=== PATIENT | male | born 1975 | race Caucasian/White ===

== ENCOUNTER 2017-03-27 21:18 | Emergency (ER) | payer MEDICARE, OTHER ==
[~2017-03-27] VITALS: Ht 188 cm; Wt 122.5 kg
[~2017-03-27 21:18] MED LIST: ALLEGRA180 MG PO; ANAPROX DS550 MG PO; AZITHROMYCIN250 MG PO; BACLOFEN10 MG PO; CARAFATE1 GM PO; CHANTIX1 EACH PO; CLINDAMYCIN HC150 MG PO; CLINDAMYCIN HC300 MG PO; CRIXIVAN PO; GUAIATUSSIN AC10 ML PO; MONTELUKAST SOD10 MG PO; NORCO 5-325 TA1 EACH PO; NORVIR100 M1 PO; NORVIR100 MG PO; OMEPRAZOLE20 MG PO; PERCOCET 10-321 EACH PO; PERCOCET 5-3251 EACH PO; PREZISTA PO; PREZISTA600 MG PO; SEPTRA DS TABL1 EACH PO; TESSALON PERLE100 MG PO; TRUVADA 200 MG1 EACH PO; VENTOLIN HFA18 GM IH; ZITHROMAX250 MG PO; ZYRTEC10 MG PO
== END 2017-03-28 00:15 | disposition home or self-care (01) ==
LOC: ED 21:18
DX: J20.9 Acute bronchitis, unspecified (principal); Z87.891 Personal history of nicotine dependence; Z88.8 Allergy status to other drugs, medicaments and biological substances; Z79.899 Other long term (current) drug therapy
CPT/HCPCS: 71020; 99283

== ENCOUNTER 2017-08-01 08:54 | Emergency (ER) | payer MEDICARE, OTHER ==
[~2017-08-01] VITALS: Ht 188 cm; Wt 81.7 kg
[2017-08-01] MEDS ORDERED: VALACYCLOVIR1000 MG PO (09:03)
[2017-08-01] MEDS ORDERED: GENVOYA TABLET1 EACH PO (09:03)
[2017-08-01] MEDS ORDERED: ZITHROMAX250 MG PO (09:13)
== END 2017-08-01 09:20 | disposition home or self-care (01) ==
LOC: ED 08:54
DX: J40 Bronchitis, not specified as acute or chronic (principal); B20 Human immunodeficiency virus [HIV] disease; F17.200 Nicotine dependence, unspecified, uncomplicated; Z88.1 Allergy status to other antibiotic agents; Z79.899 Other long term (current) drug therapy
CPT/HCPCS: 99283

== ENCOUNTER 2017-08-18 14:44 | Emergency (ER) | payer MEDICARE, OTHER ==
[~2017-08-18] VITALS: Ht 188 cm; Wt 127.2 kg
[~2017-08-18 14:44] MED LIST changes: +GENVOYA TABLET1 EACH PO; +VALACYCLOVIR1000 MG PO
[2017-08-18] MEDS ORDERED: GENVOYA TABLET1 EACH PO (14:53)
== END 2017-08-18 15:00 | disposition home or self-care (01) ==
LOC: ED 14:44
DX: R05 Cough (principal)

== ENCOUNTER 2017-09-30 19:33 | Emergency (ER) | payer MEDICARE, OTHER ==
[~2017-09-30] VITALS: Ht 188 cm; Wt 127.2 kg
[2017-09-30] MEDS ORDERED: ZITHROMAX250 MG PO (21:21)
[2017-09-30] MEDS ORDERED: ZOFRAN ODT4 MG PO (21:21)
== END 2017-09-30 21:27 | disposition home or self-care (01) ==
LOC: ED 19:33
DX: J20.9 Acute bronchitis, unspecified (principal); B20 Human immunodeficiency virus [HIV] disease; Z87.01 Personal history of pneumonia (recurrent); F17.200 Nicotine dependence, unspecified, uncomplicated; Z88.8 Allergy status to other drugs, medicaments and biological substances; Z79.899 Other long term (current) drug therapy
CPT/HCPCS: 71046; 80053; 81001; 83690; 85025; 87088; 87502; 96374; 99283; J2405; J7030

== ENCOUNTER 2017-10-13 22:02 | Emergency (ER) | payer MEDICARE, OTHER ==
[~2017-10-13] VITALS: Ht 188 cm; Wt 123.5 kg
[~2017-10-13 22:02] MED LIST changes: +ZOFRAN ODT4 MG PO
== END 2017-10-14 01:14 | disposition home or self-care (01) ==
LOC: ED 22:02
DX: R05 Cough (principal); B20 Human immunodeficiency virus [HIV] disease; Z87.01 Personal history of pneumonia (recurrent); F17.200 Nicotine dependence, unspecified, uncomplicated; Z88.1 Allergy status to other antibiotic agents; Z79.899 Other long term (current) drug therapy
CPT/HCPCS: 71046; 85025; 99283

== ENCOUNTER 2021-03-09 15:39 | Emergency (ER) | payer MEDICARE, OTHER ==
[~2021-03-09] VITALS: Ht 188 cm; Wt 123.5 kg
[2021-03-09] MEDS ORDERED: DIFLUCAN100 MG PO (18:43)
[2021-03-22] MEDS ORDERED: PREZISTA800 MG PO (09:58)
[2021-03-22] MEDS ORDERED: FLUCONAZOLE100 MG PO (09:58)
== END 2021-03-09 19:00 | disposition home or self-care (01) ==
LOC: ED 15:39
DX: B37.0 Candidal stomatitis (principal); B37.81 Candidal esophagitis; Z21 Asymptomatic human immunodeficiency virus [HIV] infection status; Z87.891 Personal history of nicotine dependence; Z88.1 Allergy status to other antibiotic agents; Z79.899 Other long term (current) drug therapy
CPT/HCPCS: 99282

== ENCOUNTER 2024-03-30 22:05 | Emergency (ER) | payer MEDICARE, OTHER ==
[~2024-03-30] VITALS: Ht 188 cm; Wt 111.0 kg
[~2024-03-30 22:05] MED LIST changes: +1ST TIER UNILE1 EAC1 MISC; +DIFLUCAN100 MG PO; +FLUCONAZOLE100 MG PO; +FREESTYLE FREE1 EAC1 MISC; +FREESTYLE LITE1 EAC1 TD; +HUMALOG100 UNITS/ SUB-Q; +INSULIN SYRING1 EA47 MISC; +LOMOTIL TABLET1 EACH PO; +ONDANSETRON ODT8 MG PO; +PREZISTA800 MG PO; +SEMGLEE100 UNIT/1 SUB-Q
[2024-03-31 00:50] LABS: BASOPHILS 0.9 % (0-2); EOSINOPHILS 1.6 % (0-6); HEMOGLOBIN 14.7 g/dL (12.0-18.0); LYMPHOCYTES 19.8 % (24-44); MCH 29.3 (27-36); MCHC 35.1 g/dl (30-36); MCV 83.4 fl (81-99); NEUTROPHILS 69.7 % (39-80); PLATELET COUNT 216 K/uL (140-440); RBC 5.04 M/ul (4.3-5.7); RDW 14.3 (10.5-15.0)
[2024-03-31 01:08] LABS: LACTIC ACID, BLOOD 1.4 mmol/L (0.4-2.0)
[2024-03-31 01:11] LABS: ALBUMIN 3.6 g/dL (3.4-5.0); ALBUMIN/GLOBULIN RATIO 1.06 (1.1-2.4); ANION GAP 14.8 (7-21); BILIRUBIN, TOTAL 0.6 ng/dL (0.2-1.0); BUN/CREATININE RATIO 7.76 (6.0-28.6); CALCIUM 8.2 mg/dL (8.5-10.1); CREATININE, SERUM 1.03 mg/dL (0.70-1.30); MAGNESIUM 1.8 mg/dL (1.8-2.4); POTASSIUM 3.8 mmol/L (3.5-5.1)
[2024-03-31 01:26] LABS: INFLUENZA B NAA NEGATIVE (NEGATIVE); RESPIRATORY SYNCYTIAL VIR NAA NEGATIVE (NEGATIVE)
[2024-03-31 01:52] LABS: BILIRUBIN, URINE NEGATIVE (negative); BLOOD/HGB, URINE NEGATIVE (Negative); KETONE, URINE NEGATIVE (Negative); LEUK ESTERASE, URINE NEGATIVE (negative); NITRITE, URINE NEGATIVE (negative)
[2024-03-31] MEDS ORDERED: PAXLOVID 300-11 EAC1 PO (01:52)
[2024-03-31] MEDS ORDERED: IBUPROFEN 800 MG TAB PO ONE (02:00)
[2024-03-31 02:06] LABS: AMPHETAMINES, URINE NEGATIVE (NEGATIVE); BARBITURATES, URINE NEGATIVE (NEGATIVE); BENZODIAZEPINE, URINE NEGATIVE (NEGATIVE); BUPRENORPHINE, URINE NEGATIVE (NEGATIVE); CANNABINOID, URINE NEGATIVE (NEGATIVE); COCAINE, URINE NEGATIVE (NEGATIVE); ECSTASY, URINE NEGATIVE (NEGATIVE); FENTANYL, URINE NEGATIVE (NEGATIVE); METHADONE, URINE NEGATIVE (NEGATIVE); OPIATES, URINE NEGATIVE (NEGATIVE); OXYCODONE, URINE NEGATIVE (NEGATIVE); PHENCYCLIDINE, URINE NEGATIVE (NEGATIVE)
[2024-03-31 02:29] VITALS: BP 121/60
== END 2024-03-31 02:31 | disposition home or self-care (01) ==
LOC: ED 22:05
PROVIDERS: Internal Medicine
DX: U07.1 COVID-19 (principal); E11.9 Type 2 diabetes mellitus without complications; Z79.899 Other long term (current) drug therapy; Z88.1 Allergy status to other antibiotic agents; Z87.891 Personal history of nicotine dependence
CPT/HCPCS: 36415; 71045; 80053; 80307; 81003; 83605; 83735; 85025; 87502; 87651; 99283; A9270; U0002

== ENCOUNTER 2024-06-11 04:26 | Emergency (ER) | payer MEDICARE, OTHER ==
[~2024-06-11] VITALS: Ht 188 cm; Wt 105.0 kg
[~2024-06-11 04:26] MED LIST changes: +PAXLOVID 300-11 EAC1 PO
[2024-06-11 04:46] LABS: BILIRUBIN, URINE NEGATIVE (negative); BLOOD/HGB, URINE NEGATIVE (Negative); KETONE, URINE NEGATIVE (Negative); LEUK ESTERASE, URINE NEGATIVE (negative); NITRITE, URINE NEGATIVE (negative); PH, URINE 5.5 (5-7)
[2024-06-11 04:48] LABS: BASOPHILS 1.5 % (0-2); EOSINOPHILS 1.6 % (0-6); HEMOGLOBIN 16.6 g/dL (12.0-18.0); LYMPHOCYTES 28.3 % (24-44); MCH 28.8 (27-36); MCHC 34.5 g/dl (30-36); MCV 83.4 fl (81-99); MONOCYTES 6.3 % (0-12); NEUTROPHILS 62.3 % (39-80); PLATELET COUNT 289 K/uL (140-440); RBC 5.76 M/ul (4.3-5.7); RDW 13.7 (10.5-15.0)
[2024-06-11] MEDS ORDERED: FAMOTIDINE 20 MG/ 2 ML VIAL IV ONE (05:00)
[2024-06-11] MEDS ORDERED: ondansetron HCL 4 MG/2 ML VIAL IV ONE (05:00)
[2024-06-11] MEDS ORDERED: KETOROLAC TROMETHAMINE 30 MG/ML VIAL IV ONE (05:00)
[2024-06-11 05:02] LABS: ALBUMIN 4.3 g/dL (3.4-5.0); ALBUMIN/GLOBULIN RATIO 1.02 (1.1-2.4); BILIRUBIN, TOTAL 0.7 ng/dL (0.2-1.0); BUN/CREATININE RATIO 6.83 (6.0-28.6); CALCIUM 9.1 mg/dL (8.5-10.1); CREATININE, SERUM 1.17 mg/dL (0.70-1.30); PROTEIN, TOTAL 8.5 g/dL (6.4-8.2)
[2024-06-11] MEDS ORDERED: LACTATED RINGER'S 1,000 ML IV ONE (05:30)
[2024-06-11] MEDS ORDERED: Insulin Regular, Human 100 UNIT/ML ML IV ONE (05:45)
[2024-06-11 05:58] LABS: CHOLESTEROL/HDL RATIO 4.1
[2024-06-11] MEDS ORDERED: CALCIUM CARBONATE 500 MG CHEW PO ONE (06:30)
[2024-06-11] MEDS ORDERED: OMEPRAZOLE20 MG PO (06:57)
[2024-06-11] MEDS ORDERED: METFORMIN HCL500 MG PO (07:02)
[2024-06-11 07:17] VITALS: BP 118/87
== END 2024-06-11 07:17 | disposition home or self-care (01) ==
LOC: ED 04:26
PROVIDERS: Internal Medicine
DX: K21.9 Gastro-esophageal reflux disease without esophagitis (principal); E11.65 Type 2 diabetes mellitus with hyperglycemia; Z87.891 Personal history of nicotine dependence; Z21 Asymptomatic human immunodeficiency virus [HIV] infection status; Z88.8 Allergy status to other drugs, medicaments and biological substances; Z79.899 Other long term (current) drug therapy
CPT/HCPCS: 36415; 71045; 74177; 80053; 80061; 81003; 83036; 83690; 85025; 96361; 96375; 99284-25; G0480; J1815; J1885; J2405; J7121; Q9967

== ENCOUNTER 2024-09-01 18:08 | Emergency (ER) | payer MEDICARE, OTHER ==
[~2024-09-01] VITALS: Ht 188 cm; Wt 101.6 kg
[~2024-09-01 18:08] MED LIST changes: +METFORMIN HCL500 MG PO
[2024-09-01] MEDS ORDERED: 24 HOUR ALLERG9.9 ML NS (18:45)
[2024-09-01] MEDS ORDERED: AMOX TR-K CLV1 EAC1 PO (18:45)
[2024-09-01 18:49] LABS: ALBUMIN 3.5 g/dL (3.4-5.0); ALBUMIN/GLOBULIN RATIO 0.95 (1.1-2.4); ANION GAP 14.1 (7-21); BILIRUBIN, TOTAL 0.5 mg/dL (0.2-1.0); BUN/CREATININE RATIO 13.69 (6.0-28.6); CALCIUM 8.7 mg/dL (8.5-10.1); CREATININE, SERUM 0.73 mg/dL (0.70-1.30); POTASSIUM 4.1 mmol/L (3.5-5.1); PROTEIN, TOTAL 7.2 g/dL (6.4-8.2)
[2024-09-01] MEDS ORDERED: Insulin Regular, Human 100 UNIT/ML ML SUB-Q ONE (19:15)
[2024-09-01] MEDS ORDERED: METFORMIN HCL500 MG PO (19:23)
[2024-09-01] MEDS ORDERED: metFORMIN HCL 500 MG TAB PO ONE (19:30)
[2024-09-01 19:50] VITALS: BP 122/82
== END 2024-09-01 19:50 | disposition home or self-care (01) ==
LOC: ED 18:08
PROVIDERS: Emergency Medicine
DX: E11.65 Type 2 diabetes mellitus with hyperglycemia (principal); Z21 Asymptomatic human immunodeficiency virus [HIV] infection status; Z87.891 Personal history of nicotine dependence; Z88.1 Allergy status to other antibiotic agents; Z79.51 Long term (current) use of inhaled steroids; Z79.899 Other long term (current) drug therapy
CPT/HCPCS: 36415; 80053; 82947; 99284; J1815

== ENCOUNTER 2024-10-19 13:07 | Emergency (ER) | payer MEDICARE, OTHER ==
[~2024-10-19] VITALS: Ht 188 cm; Wt 97.7 kg
[~2024-10-19 13:07] MED LIST changes: +24 HOUR ALLERG9.9 ML NS; +AMOX TR-K CLV1 EAC1 PO
[2024-10-19] MEDS ORDERED: DARUNAVIR (15:03)
[2024-10-19 15:50] LABS: BASOPHILS 0.9 % (0-2); EOSINOPHILS 2.1 % (0-6); HEMATOCRIT 44.8 % (35.0-50.0); HEMOGLOBIN 15.8 g/dL (12.0-18.0); LYMPHOCYTES 27.8 % (24-44); MCH 28.5 (27-36); MCHC 35.2 g/dl (30-36); MCV 81.1 fl (81-99); NEUTROPHILS 62.2 % (39-80); PLATELET COUNT 326 K/uL (140-440); RBC 5.52 M/ul (4.3-5.7); RDW 13.9 (10.5-15.0)
[2024-10-19 16:03] LABS: CORONAVIRUS COVID-19 AG NEGATIVE (NEGATIVE); INFLUENZA A AG NEGATIVE (NEGATIVE); INFLUENZA B AG NEGATIVE (NEGATIVE)
[2024-10-19 16:09] LABS: ALBUMIN 3.8 g/dL (3.4-5.0); ALBUMIN/GLOBULIN RATIO 0.95 (1.1-2.4); ANION GAP 11.5 (7-21); BILIRUBIN, TOTAL 0.3 mg/dL (0.2-1.0); BUN/CREATININE RATIO 16.66 (6.0-28.6); CALCIUM 9.6 mg/dL (8.5-10.1); CREATININE, SERUM 0.84 mg/dL (0.70-1.30); POTASSIUM 4.5 mmol/L (3.5-5.1); PROTEIN, TOTAL 7.8 g/dL (6.4-8.2)
[2024-10-19 16:56] VITALS: BP 120/77
== END 2024-10-19 17:07 | disposition home or self-care (01) ==
LOC: ED 13:07
PROVIDERS: Emergency Medicine
DX: J06.9 Acute upper respiratory infection, unspecified (principal); B97.89 Other viral agents as the cause of diseases classified elsewhere; E11.9 Type 2 diabetes mellitus without complications; Z21 Asymptomatic human immunodeficiency virus [HIV] infection status; Z87.891 Personal history of nicotine dependence; Z88.1 Allergy status to other antibiotic agents; Z79.899 Other long term (current) drug therapy; Z79.84 Long term (current) use of oral hypoglycemic drugs
CPT/HCPCS: 36415; 71045; 80053; 85025; 99283-25

== ENCOUNTER 2025-05-20 10:07 | Inpatient (IN) | payer MEDICARE, OTHER ==
[~2025-05-20] VITALS: Ht 188 cm; Wt 105.8 kg
[~2025-05-20 10:07] MED LIST changes: +DARUNAVIR
[2025-05-20] MEDS ORDERED: SODIUM CHLORIDE 0.9% 2,500 ML IV PRN (10:30)
[2025-05-20] MEDS ORDERED: AZITHROMYCIN 500 MG in DEXTROSE 5% 250 ML IV ONE (10:30)
[2025-05-20 10:36] LABS: BASOPHILS 0.3 % (0.2-1.2); EOSINOPHILS 0.1 % (0.8-7.0); LYMPHOCYTES 7.4 % (21.8-53.1); MCH 28.7 PG (25.7-32.2); MCHC 35.7 g/dL (32.3-36.5); MCV 80.4 fL (79.0-92.2); MONOCYTES 4.9 % (5.3-12.2); NEUTROPHILS 86.1 % (34.0-67.9); RBC 4.64 M/uL (4.63-6.08)
[2025-05-20 10:49] LABS: INR 1.24 (0.80-1.30); PROTIME 15.2 Sec (11.2-14.2)
[2025-05-20 10:53] LABS: ALT (SGPT) 14.0 U/L (14-59); AST (SGOT) 10.0 U/L (15-37); GLOMERULAR FILTRATION RATE,EST 95.0 mL/min (>60); PROTEIN, TOTAL 7.6 g/dL (6.4-8.2); UREA NITROGEN 13.0 mg/dL (7-18)
[2025-05-20 10:56] LABS: LACTIC ACID, BLOOD 1.2 mmol/L (0.4-2.0)
[2025-05-20] MEDS ORDERED: ACETAMINOPHEN 500 MG TAB PO ONE (12:15)
[2025-05-20 12:31] LABS: BLOOD/HGB, URINE NEGATIVE (Negative); KETONE, URINE SMALL (Negative); LEUK ESTERASE, URINE NEGATIVE (negative); NITRITE, URINE NEGATIVE (negative)
[2025-05-20 13:02] LABS: LACTIC ACID, BLOOD 1.1 mmol/L (0.4-2.0)
[2025-05-20] MEDS ORDERED: MORPHINE SULFATE 4 MG/ML VIAL IV ONE (14:15)
[2025-05-20] MEDS ORDERED: ACETAMINOPHEN 325 MG TAB PO PRN (16:00)
[2025-05-20] MEDS ORDERED: DEXTROSE 5% 1,000 ML IV PRN (16:00)
[2025-05-20] MEDS ORDERED: DEXTROSE 50% 50 ML SYR IV PRN ×2 (16:00)
[2025-05-20] MEDS ORDERED: LACTATED RINGER'S 1,000 ML IV SCH (16:00)
[2025-05-20] MEDS ORDERED: GUAIFENESIN/CODEINE 5 ML UDC PO PRN (16:00)
[2025-05-20] MEDS ORDERED: IBLOOD GLUCOSE TEST STRIP 1 EA TEST XX PRN (16:00)
[2025-05-20] MEDS ORDERED: GLUCAGON,HUMAN RECOMBINANT 1 MG/ML VIAL SUB-Q PRN (16:00)
[2025-05-20 16:56] LABS: INFLUENZA B NAA NEGATIVE (NEGATIVE); RESPIRATORY SYNCYTIAL VIR NAA NEGATIVE (NEGATIVE)
[2025-05-20] MEDS ORDERED: IBLOOD GLUCOSE TEST STRIP 1 EA TEST VI SCH (17:00)
[2025-05-20] MEDS ORDERED: INSULIN LISPRO 100 UNIT/ML ML SUB-Q SCH (17:00)
[2025-05-20 17:12] VITALS: BP 113/68
[2025-05-20] MEDS ORDERED: ALBUTEROL SULFATE 0.083% 3 ML VIAL INH PRN (18:15)
[2025-05-20 18:23] VITALS: BP 113/68
--- NOTE | 2025-05-20 18:31 | NUR ---
PT ADMITTED AT 1642. ASSESSMENT AND HX SCREENINGS COMPLETED. PT PROVIDED WITH DINNER MEAL. PT A&OX4, HRR, L/S WITH CRACKLES TO R BASE, PT ABD SOFT, + BS, REPORTS LBM 05/12/2025 WHICH IS NORMAL FOR HIM. PT ORIENTED TO ROOM AND CALL [place], BED IN LOW POSITION AND LOCKED. SIDERAILS UP X2. CALL PLACED TO FATHER, ANABEL, WRONG NUMBER PROVIDED.
--- NOTE | 2025-05-20 19:25 | NUR ---
REPORT RECIEVED FROM MARINA ASKEW. PATIENT RESTING IN BED WITH HIS EYES CLOSED. EVEN AND UNLABORED REPIRATIONS NOTED. CALL LIGHT AND PERSONAL BELONGINGS ARE WITHIN REACH. WHITE BOARD UPDATED.
--- NOTE | 2025-05-20 20:40 | NUR ---
PATIENT RESTING IN BED ON HIS LEFT SIDE WITH HIS EYES CLOSED. EVEN AND UNLABORED RESPIRATIONS NOTED. CALL LIGHT AND PERSONAL BELONGINGS ARE WITHIN REACH. IV FLUIDS INFUSING PER EMAR.
[2025-05-20] MEDS ORDERED: MELATONIN 3 MG TAB PO PRN (21:00)
[2025-05-20] MEDS ORDERED: INSULIN GLARGINE-YFGN 100 UNIT/ML ML SUB-Q SCH (21:00)
[2025-05-20 21:34] VITALS: BP 126/78
[2025-05-20 21:47] VITALS: BP 126/78
--- NOTE | 2025-05-20 21:50 | NUR ---
Documented I/Os from previous shift between [id number].
[2025-05-21] VITALS (10 sets, daily range): BP systolic 107–122; BP diastolic 64–73
--- NOTE | 2025-05-21 00:20 | NUR ---
PATIENT RESTING IN BED ON HIS RIGHT SIDE WITH HIS EYES CLOSED. EVEN AND UNLABORED RESPIRATIONS NOTED. CALL LIGHT AND PERSONAL BELONGINGS ARE WITHIN REACH.
--- NOTE | 2025-05-21 02:03 | NUR ---
PATIENT IS LAYING IN BED. VITAL SIGNS AND I&OS WERE DONE. PATIENT REPORTED HIS COUGH WAS COMING BACK. IV PUMP STATED OCCLUDED, AND IV WAS NOT SECURE. RN OCTAVIA WAS NOTIFIED. CALL LIGHT IS WITHIN REACH AND NO FURTHER NEEDS AT THIS TIME.
--- NOTE | 2025-05-21 02:22 | NUR ---
IV FLUSHED WITH 10ML OF NS, DRESSING REINFORCED. IV FLUIDS INFUSING CONTINUOUS PER EMAR. PATIENT MEDICATED PER EMAR. PATIENT IS WITHOUT FURTHER NEEDS AT THIS TIME. CALL LIGHT AND PERSONAL BELONGINGS ARE WITHIN REACH.
[2025-05-21 05:16] LABS: BASOPHILS 0.3 % (0.2-1.2); EOSINOPHILS 0.4 % (0.8-7.0); LYMPHOCYTES 7.9 % (21.8-53.1); MCH 28.7 PG (25.7-32.2); MCHC 35.3 g/dL (32.3-36.5); MCV 81.3 fL (79.0-92.2); MONOCYTES 4.2 % (5.3-12.2); NEUTROPHILS 85.9 % (34.0-67.9); RBC 3.59 M/uL (4.63-6.08)
[2025-05-21 05:31] LABS: ALT (SGPT) 10.0 U/L (14-59); AST (SGOT) 9.0 U/L (15-37); GLOMERULAR FILTRATION RATE,EST 119.0 mL/min (>60); PROTEIN, TOTAL 5.6 g/dL (6.4-8.2); UREA NITROGEN 8.0 mg/dL (7-18)
--- NOTE | 2025-05-21 06:14 | NUR ---
PATIENT IS LAYING IN BED. PATIENT WAS PROVIDED WITH ICE WATER. VITAL SIGNS AND I&OS WERE DONE. CALL LIGHT IS WITHIN REACH AND NO FURTHER NEEDS AT THIS TIME.
--- NOTE | 2025-05-21 07:43 | NUR ---
PT RESTING EYES CLOSED AT TIME OF SHIFT REPORT, LEFT UNDISTURBED. FRESH H20 TO BEDSIDE CALL LIGHT IN REACH
[2025-05-21] MEDS ORDERED: ENOXAPARIN SODIUM 40 MG/0.4 ML SYR SUB-Q SCH (09:00)
[2025-05-21] MEDS ORDERED: MAGNESIUM OXIDE 400 MG TABLET PO ONE (09:00)
[2025-05-21] MEDS ORDERED: AZITHROMYCIN 250 MG TAB PO SCH (09:00)
--- NOTE | 2025-05-21 09:00 | NUR ---
MORNING MEAL WELL TOLERATED. PT PRODUCING THICK ROSAS COLORED SPUTUM STATES HE FEELS POORLY. SATS IN NORMAL RANGE NO 02 NEED. ENCOURAGED PT TO SHOWER AFTER A BIT HE IS SWEATY. AGREES TO NOTIFY STAFF WHEN HE IS READY.
--- NOTE | 2025-05-21 10:19 | NUR ---
PT RESTING IN BED, HEAD UP, TV ON. NO VISITORS IN THE ROOM. PT ASKED FOR A PHONE PHARMACY INFORMATICS MANAGER, I FOUND HIM ONE THAT FIT AND CHARGED HIS PHONE.
--- NOTE | 2025-05-21 10:20 | NUR ---
EMPTIED URINAL AND RECORDED I/O'S FOR AM. TOOK OUT ROOM TRASH AND PICKED UP THE ROOM. GOT PT FRESH ICE WATER. CALL LIGHT NEXT TO PT. PT REPORTS NEEDING NOTHNG MORE AT THIS TIME.
--- NOTE | 2025-05-21 10:45 | NUR ---
PT TO IMAGING VIA W/C
--- NOTE | 2025-05-21 10:59 | NUR ---
C/T WELL TOLERATED PT BACK TO ROOM CHOOSES BED INSTEAD OF RECLINER. LINENS CHANGED
[2025-05-21] MEDS ORDERED: PHARMACY RENAL DOSE ADJUSTMENT 1 DOSE MISC PO SCH (12:00)
--- NOTE | 2025-05-21 12:03 | NUR ---
PT CONTINUES RESTING IN BED WATCHING TV. DENIES SOB OR DISCOMFORTS. NOON MEAL SERVED
[2025-05-21] MEDS ORDERED: CINNAMON500 MG PO (13:18)
[2025-05-21] MEDS ORDERED: [UNRECOGNIZED DRUG - OTHER] PO (13:20)
--- NOTE | 2025-05-21 13:20 | NUR ---
MED REC COMPLETE
--- NOTE | 2025-05-21 14:54 | NUR ---
PT RESTING EYES CLOSED.
--- NOTE | 2025-05-21 17:10 | NUR ---
PT AGREES HE HAD A GOOD NAP. AWAKE NOW EATING EVENING MEAL. AGREES HE IS STILL PRODUCING THICK ROSAS COLORED SPUTUM SATS REMAIN MID TO HIGH 90'S.
--- NOTE | 2025-05-21 18:46 | NUR ---
ROOM CLEANED UP AND TRASH REMOVED FROM ROOM. PT IN BED, TV ON, AND NO VISITORS IN THE ROOM. GOT PT WARM WASH CLOTH FOR FACE AND HANDS. GOT PT FRESH ICE WATER. CALL LIGHT ON THE BED IN PT'S HANDS. PT REPORTS NEEDING NOTHING MORE AT THIS TIME.
--- NOTE | 2025-05-21 19:23 | NUR ---
REPORT RECEIVED FROM DAY SHIFT RN. PT LYING IN BED ALERT AND ORIENTED. DENIES NEEDS. WHITE BOARD UPDATED. CALL LIGHT IN REACH.
--- NOTE | 2025-05-21 20:00 | NUR ---
IV SL AND WRAPPED. PT UP TO SHOWER INDEPENDENTLY.
[2025-05-21] MEDS ORDERED: INSULIN GLARGINE-YFGN 100 UNIT/ML ML SUB-Q SCH (21:00)
--- NOTE | 2025-05-21 21:10 | NUR ---
EVENING ASSESSMENT COMPLETE. SCHEDULED MEDS ADMIN PER EMAR. PT REPORTS RIGHT SIDE ABD PAIN WHEN COUGHING 12/20. PRN FOR PAIN AND COUGH ADMIN. CRACKLES AUSCULTATED IN RIGHT UPPER AND LOWER LOBES. PT ON RA. SpO2 96%. REPORTS SOB AT REST. UTILIZING CORONET. ROSAS SPUTUM NOTED. RESPIRATIONS EVEN. PT DENIES QUESTIONS OR CONCERNS. CALL LIGHT IN REACH.
--- NOTE | 2025-05-21 23:05 | NUR ---
CALL LIGHT ANSWERED. LOW CARB SNACK PROVIDED PER REQUEST. NO FURTHER NEEDS. CALL LIGHT IN REACH.
[2025-05-22] VITALS (9 sets, daily range): BP systolic 114–132; BP diastolic 65–76
--- NOTE | 2025-05-22 01:02 | NUR ---
PT AWAKE IN BED WATCHING TV. HEAD OF BED ELEVATED. URINAL EMPTIED. NO FURTHER NEEDS.
--- NOTE | 2025-05-22 03:17 | NUR ---
IV PUMP ALARMING. ISSUE RESOLVED. PT LYING IN BED RESTING WITH EYES CLOSED. RESPIRATIONS EVEN. URINAL EMPTIED. CALL LIGHT IN REACH.
[2025-05-22 05:25] LABS: BASOPHILS 0.4 % (0.2-1.2); EOSINOPHILS 1.2 % (0.8-7.0); LYMPHOCYTES 14.5 % (21.8-53.1); MCH 28.7 PG (25.7-32.2); MCHC 35.3 g/dL (32.3-36.5); MCV 81.3 fL (79.0-92.2); MONOCYTES 6.1 % (5.3-12.2); NEUTROPHILS 76.0 % (34.0-67.9); RBC 4.07 M/uL (4.63-6.08)
--- NOTE | 2025-05-22 05:34 | NUR ---
LAB IN FOR MORNING DRAW. VS AND I&O OBTAINED. PRN FOR COUGH ADMIN PER EMAR. ASSESSMENT COMPLETE. PT DENIES NEEDS. CALL LIGHT IN REACH.
[2025-05-22 05:43] LABS: ALT (SGPT) 24.0 U/L (14-59); AST (SGOT) 22.0 U/L (15-37); GLOMERULAR FILTRATION RATE,EST 117.0 mL/min (>60); PROTEIN, TOTAL 6.7 g/dL (6.4-8.2); UREA NITROGEN 11.0 mg/dL (7-18)
--- NOTE | 2025-05-22 07:45 | NUR ---
PT AWAKE AND RESTING IN BED AT TIME OF SHIFT REPORT. AGREES HE FEELS A LITTLE BETTER TODAY. CONTINUES TO PRODUCE SPUTUM HE DID YESTERDAY. FRESH H20 AT BEDSIDE CALL LIGHT IN REACH
--- NOTE | 2025-05-22 08:26 | NUR ---
PT SITTING UP IN BED TALKATIVE AND UPBEAT. STATES MORNING MEAL IS GOOD HE IS EATING HEARTILY
[2025-05-22] MEDS ORDERED: METFORMIN HCL750 MG PO (08:44)
--- NOTE | 2025-05-22 09:54 | NUR ---
HOURLY ROUNDING BOARD HAS BEEN UPDATED AND CALL LIGHT HAS BEEN PLACED WITHIN REACH, PATIENT APPEARS PLEASENT, VOICE IS VERY LOW. NURSE NOTIFED TEMP 99.7. NO REQUEST FROM PATIENT DRINK CUP HAS BEEN FILLED WITH ICE WATER AND CALL LIGHT HAS BEEN PLACED WITHIN REACH
--- NOTE | 2025-05-22 10:00 | NUR ---
PT ENCOURAGED TO USE ACCU[employer] FREQUENTLY THIS SHIFT HE VERBALIZES UNDERSTANDING
--- NOTE | 2025-05-22 10:05 | NUR ---
Spoke with Victorino. He states he lives [place]. He does not have any issues getting in or out of his home. He does not use any DME. He has a case liner at [facility] as he is HIV +. He feels his only need is to have his natural gas turned back on and for someone to clean his home. He does not have hot water or gas heat. He does use an electric heater. His gas has been off for 2.5 to 3 years. His bill went to [facility], [facility] is unable to assist when this happens. His CW is Marissa Beasley [phone] at [facility]. Pt states he receives food stamps, SSID. I called [employer] to see if they can help. They will call me back.
[2025-05-22] MEDS ORDERED: PREDNISONE20 MG PO (11:09)
[2025-05-22] MEDS ORDERED: IBU600 MG PO (11:10)
[2025-05-22] MEDS ORDERED: BENZONATATE200 MG PO (11:10)
[2025-05-22] MEDS ORDERED: VENTOLIN HFA18 GM INH (11:11)
--- NOTE | 2025-05-22 11:20 | NUR ---
UR CLINICAL REVIEW: 2 MN FOR [facility] MEETS INPT FOR PNA WITH NEED FOR IV ABX, SERIAL LABS AND MONITORING MEDICARE INPT 05/20/25 @ 1556 ORDER MATCHES REG NO AUTH REQUIED PER MEDICARE GUIDELINES DISCHARGE TO HOME WHEN STABLE
--- NOTE | 2025-05-22 12:41 | NUR ---
NOON MEAL WELL TOLERATED PT SITTING UP IN BED REPORTS SEEING DR ACOSTA [facility] ALL QUESTIONS ANSWERED AND PLAN FOR DC DISCUSSED
--- NOTE | 2025-05-22 13:03 | NUR ---
NEW IVF BAG HANGING INFUSING WITHOUT DIFFICULTY. PATIENT DENIES FURTHING NEEDS AT THIS TIME. BELONGINGS AND CALL LIGHT IN REACH.
--- NOTE | 2025-05-22 13:42 | NUR ---
PT TO THE SHOWER STAFF CHANGING LINENS.
--- NOTE | 2025-05-22 13:47 | NUR ---
HOURLY ROUNDING PATIENT CALLED TO USE THE RESTROOM, CHANGED PATIENT LINENS HE AND OFFERED SITTING IN HIS RECLINER CHAIR HE DECLINED. PATIENT IS NOW BACK IN BED. CALL LIGHT HAS BEEN PLACED WITHIN REACH
[2025-05-22 14:58] LABS: % CD4 23 % (32-64); ABSOLUTE CD4 385 cells/uL (430-1800)
--- NOTE | 2025-05-22 15:00 | NUR ---
ASSESSMENT COMPLETE. PATIENT RESTING IN BED WATCHING TV. URINAL EMPTID AND RECORDED. PATIENT DENIES PAIN AT THIS TIME. FRESH WATER GIVEN. CALL LIGHT AND BELONGINGS IN REACH.
--- NOTE | 2025-05-22 15:04 | NUR ---
PT HAD A SHOWER EARLIER THIS SHIFT LINENS CHANGED. RESTING IN BED AT THIS TIME DENIES NEEDS OF
[2025-05-22] MEDS ORDERED: VANCOMYCIN PER PHARMACY PROTOCOL IV SCH (16:17)
[2025-05-22] MEDS ORDERED: VANCOMYCIN HCL 2,500 MG in DEXTROSE 5% 500 ML IV ONE (17:00)
--- NOTE | 2025-05-22 18:12 | NUR ---
HOURLY ROUNDING PATIENT APPEARS TO BE IN A GOOD MOOD. EMPTIED URINAL AND CALL LIGHT HAS BEENPLACED WITHIN REACH. NO REQUEST FROM PATIENT AT THIS TIME
--- NOTE | 2025-05-22 19:35 | NUR ---
REPORT RECEIVED FROM DAY SHIFT RN. PT LYING IN BED RESTING IN BED ALERT AND ORIENTED. WHITE BOARD UPDATED. CALL LIGHT IN REACH.
[2025-05-22] MEDS ORDERED: INSULIN GLARGINE-YFGN 100 UNIT/ML ML SUB-Q SCH (21:00)
[2025-05-22] MEDS ORDERED: TRIMETHOPRIM/SULFAMETHOXAZOLE 1 EA TAB PO SCH (21:00)
[2025-05-22] MEDS ORDERED: PIPERACILLIN/TAZOBACTAM 4.5 GM in DEXTROSE 5% 100 ML IV SCH (22:00)
--- NOTE | 2025-05-22 22:10 | NUR ---
EVENING ASSESSMENT COMPLETE. SCHEDULED MEDS ADMIN PER EMAR. PT DENIES PAIN OR NAUSEA. REPORTS SOB AT REST. RESPIRATIONS EVEN. SpO2 97% ON RA. FINE CRACKLES AUSCULTATED IN RIGHT LOWER LOBE, OTHER VERMA CLEAR THROUGHOUT. PRODUCTIVE COUGH NOTED WITH LIGHT ROSAS SPUTUM. SPUTUM CX SENT TO LAB. PRN FOR COUGH ADMIN PER REQUEST. PT DENIES QUESTIONS OR CONCERNS. CALL LIGHT IN REACH.
[2025-05-23] VITALS (7 sets, daily range): BP systolic 110–124; BP diastolic 59–77
--- NOTE | 2025-05-23 | NUR ---
IV PUMP ALARMING. NEW BAG IVF INFUSING PER ORDER. FRESH WATER PROVIDED. URINAL EMPTIED. NO FURTHER NEEDS.
--- NOTE | 2025-05-23 03:09 | NUR ---
IV PUMP ALARMING. ISSUE RESOLVED. MRSA SWAB OBTAINED AND SENT TO LAB. URINAL EMPTIED. PT DENIES NEEDS. CALL LIGHT IN REACH.
--- NOTE | 2025-05-23 04:06 | NUR ---
PT IN BED RESTING WITH EYES CLOSED. RESPIRATIONS EVEN. CALL LIGHT IN REACH.
[2025-05-23 05:17] LABS: BASOPHILS 0.5 % (0.2-1.2); EOSINOPHILS 1.4 % (0.8-7.0); LYMPHOCYTES 22.5 % (21.8-53.1); MCH 28.6 PG (25.7-32.2); MCHC 34.6 g/dL (32.3-36.5); MCV 82.7 fL (79.0-92.2); MONOCYTES 8.3 % (5.3-12.2); NEUTROPHILS 64.1 % (34.0-67.9); RBC 4.16 M/uL (4.63-6.08)
[2025-05-23 05:37] LABS: ALT (SGPT) 32.0 U/L (14-59); AST (SGOT) 24.0 U/L (15-37); GLOMERULAR FILTRATION RATE,EST 117.0 mL/min (>60); PROTEIN, TOTAL 6.9 g/dL (6.4-8.2); UREA NITROGEN 5.0 mg/dL (7-18)
--- NOTE | 2025-05-23 06:00 | NUR ---
LAB IN FOR MORNING DRAW. VS AND I&O OBTAINED. IV ABX INFUSING PER ORDER. NO NEEDS AT THIS TIME. CALL LIGHT IN REACH.
--- NOTE | 2025-05-23 07:32 | NUR ---
GOT REPORT FROM RUBBER COMPOUNDER MIXER NURSE.
[2025-05-23] MEDS ORDERED: VANCOMYCIN HCL 1,750 MG in DEXTROSE 5% 500 ML IV SCH (09:00)
--- NOTE | 2025-05-23 09:33 | NUR ---
PATIENT UP AND WALKED 4 LAPS AROUND MED SURG. PATIENT TOLERATED WELL NO SOB. PULSE BELOW 100S. OXYGEN STAT WAS 96 WHEN BACK TO THE ROOM. ROOM WAS ALL CLEANED UP FOR PATIENT.
--- NOTE | 2025-05-23 10:17 | NUR ---
NEW IV BAG OF FLUIDS HUNG FOR PATIENT. DOCTOR IN ROOM WITH PATIENT.
--- NOTE | 2025-05-23 10:45 | NUR ---
Updated Victorino, I am cont. to work on funds for his gas bill. I have made requests through the hospital. He denies other needs.
--- NOTE | 2025-05-23 12:14 | NUR ---
PATIENT INSULIN GIVEN. PATIENT AGREES TO WALK AFTER LUNCH. PATIENT HAS WATER AT BEDSIDE. FLUIDS RUNNING.TV ON. CALL LIGHT WITHIN REACH.
--- NOTE | 2025-05-23 13:09 | NUR ---
PATIENT HAVING LUNCH AND THEN WILL GO FOR A WALK.
--- NOTE | 2025-05-23 13:46 | NUR ---
PATIENT WAS UP AND WALKED 4 LAPS. DENIES SOB, CHEST PAIN. PATIENT HAS ANTIBIOTICS RUNNING NOW. FRESH WATER, TV ON. CALL LIGHT WITHIN REACH.
--- NOTE | 2025-05-23 13:50 | NUR ---
Received a call from Matilde Hart and Magi Doherty. They are able to assist this pt to [facility]. Magi asked if they can take a credit card. We made several attempts to call. We then realized they are closed for 's day. I will Fu tomorrow.
--- NOTE | 2025-05-23 15:49 | NUR ---
Updated pt, I will cont. to work on assistance for heating tomorrow.
--- NOTE | 2025-05-23 15:51 | NUR ---
Called and left a message for Marissa at [facility] we will attempt to pay [employer] bill.
--- NOTE | 2025-05-23 15:54 | NUR ---
PATIENT CURRENTLY SLEEPING ON RIGHT SIDE, REGULAR RESPIRATIONS NOTED.
--- NOTE | 2025-05-23 19:14 | NUR ---
VERBAL REPORT RECEIVED BY AGATHA GRAY. PATIENT RESTING IN BED AWAKE AT THIS TIME, CALL LIGHT IN REACH. NO NEEDS AT THIS TIME.
[2025-05-23] MEDS ORDERED: guaiFENesin 600 MG TABCR PO SCH (21:00)
[2025-05-23] MEDS ORDERED: INSULIN GLARGINE-YFGN 100 UNIT/ML ML SUB-Q SCH (21:00)
--- NOTE | 2025-05-23 22:41 | NUR ---
ASSESSMENT COMPLETE. PATIENT IS BREATHING EVEN AND UNLABORED. PATIENT IS COUGHING UP SMALL AMOUNTS OF YELLOW TINGED SPUTUM. VSS PATIENT IS AFEBRILE. PATIENT STATES TO BE HAVING 6/10 PAIN LOCATED NEAR THE RIGHT LUNG, PRN PAIN MEDICATION GIVEN (SEE EMAR). PATIENT DENIES ANY NEEDS AT THIS TIME CALL LIGHT IN REACH.
[2025-05-24] VITALS (7 sets, daily range): BP systolic 108–114; BP diastolic 62–71
--- NOTE | 2025-05-24 00:53 | NUR ---
PATIENT IS SITTING UP IN BED AT THIS TIME WATCHING TV. FRESH ICE WATER PROVIDED PER PATIENT REQUEST. PATIENT DENIES ANY FURTHER NEEDS AT THIS TIME. CALL LIGHT IN REACH.
--- NOTE | 2025-05-24 02:33 | NUR ---
ASSESSMENT REMAINS UNCHANGED. PATIENT IS RESTING IN BED EYES CLOSED BREATHING EVEN AND UNLABORED. CALL LIGHT IN REACH.
--- NOTE | 2025-05-24 04:22 | NUR ---
PATIENT RESTING IN BED AWAKE BREATHING EVEN AND UNLABORED. ICE WATER PROVIDED PER PATIENT REQUEST. DENIES ANY FURTHER NEEDS AT THIS TIME. CALL LIGHT IN REACH.
[2025-05-24 05:23] LABS: BASOPHILS 0.9 % (0.2-1.2); EOSINOPHILS 1.7 % (0.8-7.0); LYMPHOCYTES 33.0 % (21.8-53.1); MCH 28.4 PG (25.7-32.2); MCHC 34.3 g/dL (32.3-36.5); MCV 82.8 fL (79.0-92.2); MONOCYTES 8.9 % (5.3-12.2); NEUTROPHILS 51.7 % (34.0-67.9); RBC 4.47 M/uL (4.63-6.08)
[2025-05-24 05:45] LABS: ALT (SGPT) 34.0 U/L (14-59); AST (SGOT) 25.0 U/L (15-37); GLOMERULAR FILTRATION RATE,EST 112.0 mL/min (>60); PROTEIN, TOTAL 7.1 g/dL (6.4-8.2); UREA NITROGEN 8.0 mg/dL (7-18)
--- NOTE | 2025-05-24 05:56 | NUR ---
PATIENT SITTING UP IN BED WATCHING TV AT THIS TIME. FRESH ICE WATER PROVIDED. PATIENT GIVEN PRN COUGH MEDICATION DUE TO COMPLAINTS OF COUGHING. CALL LIGHT IN REACH AND PERSONAL BELONGINGS. PATIENT DENIES FURTHER NEEDS AT THIS TIME
--- NOTE | 2025-05-24 08:09 | NUR ---
REPORT RECEIVED FROM MARINA NUNN. pt RESTING IN BED, OPERATIONAL INTELLIGENCE OFFICER IN ROOM.
--- NOTE | 2025-05-24 08:34 | NUR ---
pt SITTING UP IN BED EATING BREAKFAST. VSS. SCHEDULED MEDICATIONS ADMINISTERED. IV SITE FLUSHED WNL. pt ON ROOM AIR, SPO2 WNL. ASSESSMENT COMPLETE. LUNG SOUNDS COARSE ON RIGHT SIDE. URINAL EMPTIED, CALL LIGHT IN REACH.
--- NOTE | 2025-05-24 10:13 | NUR ---
IV ANTIBIOTIC COMPLETE. IV SL WNL. ICE WATER REFILLED. NO ADDITIONAL NEEDS REQUESTED.
--- NOTE | 2025-05-24 10:20 | NUR ---
Spoke with Victorino. UPdated we were able to [facility]. I gave him a printed receipt with a confirmation number and let him know he needs to call when he get home and they will turn his gas on. He will need a ride home in a taxi. He denies any other needs. Will complete IV antibiotics then dc.
--- NOTE | 2025-05-24 11:00 | NUR ---
pt ABMULATING IN HALLWAY INDEPENDENTLY. GAIT STEADY. NO DISTRESS NOTED.
[2025-05-24] MEDS ORDERED: MUCINEX600 MG PO (11:13)
[2025-05-24] MEDS ORDERED: MAXI-TUSS AC L473 ML PO (11:16)
[2025-05-24] MEDS ORDERED: OZEMPIC0.25 MG/02 SUB-Q (11:19)
--- NOTE | 2025-05-24 12:05 | NUR ---
IN ROOM FOR SCHEDULED INSULIN ADMINISTRATION PER ORDERS. PHARMACIST DENISE IN ROOM PROVIDING EDUCATION. LUNCH IN FRONT OF pt. NO ADDITIONAL REQUESTS. CALL LIGHT IN REACH.
--- NOTE | 2025-05-24 13:11 | NUR ---
pt RESTING IN BED TALKING ON PHONE. IV SITE FLUSHED WNL, GOOD BLOOD RETURN. IV ANTIBIOTIC INFUSING WNL. CALL LIGHT IN REACH. pt STATES HE WILL NEED A TAXI RIDE HOME.
--- NOTE | 2025-05-24 13:45 | NUR ---
CALL LIGHT ANSWERED. IV ANTIBIOTIC COMPLETE. IV DC'D BY ANUJ MOSLEY. pt UP TO SHOWER INDEPENDENTLY.
[2025-05-24 21:01] LABS: HIV-1 QNT BY NAAT (COPIES/ML) Not Detected cpy/mL (()); HIV-1 QNT BY NAAT INTERP Not Detected (Not Detected); HIV-1 QNT NAAT (LOG COPIES/ML) Not Detected (())
== END 2025-05-24 15:25 | disposition home or self-care (01) | DRG 871 ==
LOC: ED 10:07 → MS 15:56
PROVIDERS: Emergency Medicine; ADMIT Student in an Organized Health Care Education/Training Program; ATTEND Student in an Organized Health Care Education/Training Program
DX: A41.9 Sepsis, unspecified organism (principal); J18.9 Pneumonia, unspecified organism; Z21 Asymptomatic human immunodeficiency virus [HIV] infection status; E11.65 Type 2 diabetes mellitus with hyperglycemia; Z87.891 Personal history of nicotine dependence; Z86.19 Personal history of other infectious and parasitic diseases; Z79.84 Long term (current) use of oral hypoglycemic drugs; Z79.899 Other long term (current) drug therapy; Z79.2 Long term (current) use of antibiotics; Z79.4 Long term (current) use of insulin; Z88.1 Allergy status to other antibiotic agents
CPT/HCPCS: 36415; 71045; 71260; 80053; 81003; 82800; 83036; 83605; 83735; 85025; 85060; 85610; 85730; 87502; 87536; 94640; 94667; 94668; 94799; A9270; J0456; J0696; J1650; J1815; J2270; J2405; J2543; J3373; J7060; J7121; Q9967; U0002